=== PATIENT | female | born 1950 | race Caucasian/White ===

== ENCOUNTER 2017-12-31 17:48 | Emergency (ER) | payer OTHER ==
[2017-12-31] MEDS ORDERED: HYDROCODONE/APAP 10/325 TAB ONE (18:15)
--- NOTE | 2017-12-31 19:08 | EDPHYS ---
Physician Documentation [facility] Name: Juana Varner Age: 67 yrs Sex: Female : 1950 Arrival Date: 12/31/2017 Time: 17:49 Bed 27 Private MD: Out, [facility] ED Physician Owen Graves HPI: 12/31 18:05 This 67 yrs old Female presents to ER via Ambulatory with complaints of pm1 Laceration To Fingers. 18:05 Onset: The symptoms/episode began/occurred 1 hour(s) ago. pm1 18:05 The patient or guardian reports a laceration, clean. The complaints affect the dorsal pm1 aspect of middle phalanx of right middle finger and palmar aspect of distal phalanx of right thumb. Context: The problem was sustained at home, resulted from cutting vegetables with mandolin . Modifying factors: The symptoms are alleviated by pressure to area, the symptoms are aggravated by nothing. Associated signs and symptoms: Pertinent negatives: cyanosis distally, decreased sensation distally, numbness distally, tingling distally. Severity of symptoms: in the emergency department the symptoms are unchanged. The patient has not experienced similar symptoms in the past. Came to the ER due to difficulty with stopping the bleeding. Patient reports mandolin is new and she was cutting the vegetables with her hand instead of the food olivera. Historical: - Allergies: 17:51 No Known Allergies; sg - PSHx: 17:51 pace maker; Kidney stents; Lithotripsy; Hysterectomy; Tonsillectomy; sg - Immunization history:: Adult Immunizations not up to date. - Social history:: Smoking status: Patient/guardian denies using tobacco. - Ebola Screening: : Patient negative for fever greater than or equal to 101.5 degrees Fahrenheit, and additional compatible Ebola Virus Disease symptoms Patient denies exposure to infectious person Patient denies travel to an Ebola-affected area in the 21 days before illness onset No symptoms or risks identified at this time. ROS: 18:05 Constitutional: Negative for fever, chills, and weight loss, Cardiovascular: Negative pm1 for chest pain, palpitations, and edema, Respiratory: Negative for shortness of breath, cough, wheezing, and pleuritic chest pain, Abdomen/GI: Negative for abdominal pain, nausea, vomiting, diarrhea, and constipation, Back: Negative for injury and pain. 18:05 Neuro: Negative for headache, weakness, numbness, tingling, and seizure. 18:05 MS/extremity: Positive for laceration, of the palmar aspect of distal phalanx of right thumb and dorsal aspect of middle phalanx of right middle finger, Negative for decreased range of motion, deformity. 18:05 Skin: Positive for laceration(s), of the palmar aspect of distal phalanx of right thumb and dorsal aspect of middle phalanx of right middle finger. Exam: 18:05 Constitutional: This is a well developed, well nourished patient who is awake, alert, pm1 and in no acute distress. Head/Face: Normocephalic, atraumatic. Chest/axilla: Normal chest wall appearance and motion. Nontender with no deformity. No lesions are appreciated. Cardiovascular: Regular rate and rhythm with a normal S1 and S2. No gallops, murmurs, or rubs. Normal PMI, no JVD. No pulse deficits. Respiratory: Lungs have equal breath sounds bilaterally, clear to auscultation and percussion. No rales, rhonchi or wheezes noted. No increased work of breathing, no retractions or nasal flaring. Back: No spinal tenderness. No costovertebral tenderness. Full range of motion. 18:05 Skin: Appearance: normal except for affected area, injury, avulsion(s), a small of the dorsal aspect of middle phalanx of right middle finger, laceration(s), that can be described as clean, no foreign body, irregular, without bleeding, superficial at dorsal aspect of third right middle finger. Vital Signs: 17:58 BP 150 / 84; Pulse 66; Resp 17; Temp 97.9; Pulse Ox 100% on R/A; Weight 70.31 kg (R); sg Pain 10/10; MDM: 17:59 Patient medically screened. pm1 18:04 ED course: Patient refused tetanus shot. Just wants pain medication and to stop the pm1 bleeding. 19:07 Data reviewed: vital signs. Data interpreted: Pulse oximetry: on room air is 100 %. pm1 Interpretation: normal. Counseling: I had a detailed discussion with the patient and/or guardian regarding: the historical points, exam findings, and any diagnostic results supporting the discharge/admit diagnosis, the need for outpatient follow up, to return to the emergency department if symptoms worsen or persist or if there are any questions or concerns that arise at home. Administered Medications: 18:13 Drug: [place] 10 mg-325 mg 1 tabs Route: PO; mg2 Disposition: 01/01 06:48 Co-signature as Attending Physician, Owen Graves MD I agree with the assessment and christina plan of care. Disposition: 12/31/17 19:08 Discharged to Home. Impression: Laceration without foreign body of right thumb without damage to nail. - Condition is Stable. - Discharge Instructions: Laceration Care, Adult. - Prescriptions for Tylenol- Codeine #3 300-30 mg Oral Tablet - take 2 tablets by ORAL route every 6 hours As needed; 20 tablet. - Medication Reconciliation Form, Thank You Letter, Antibiotic Education, Prescription Opioid Use form. - Follow up: Emergency Department; When: As needed; Reason: Worsening of condition. Follow up: Private Physician; When: As needed; Reason: Wound Recheck, Recheck today's complaints, Continuance of care, Re-evaluation by your physician. - Problem is new. - Symptoms have improved. Signatures: Ilir Velazquez, RN RN Owen Knight MD MD cha Marinas, Patrick, PERCUSSION TUNER PERCUSSION TUNER pm1 Damian Villalobos RN RN mg2 Corrections: (The following items were deleted from the chart) 12/31 19:41 19:08 12/31/2017 19:08 Discharged to Home. Impression: Laceration without foreign body mg2 of right thumb without damage to nail. Condition is Stable. Forms are Medication Reconciliation Form, Thank You Letter, Antibiotic Education, Prescription Opioid Use. Follow up: Emergency Department; When: As needed; Reason: Worsening of condition. Follow up: Private Physician; When: As needed; Reason: Wound Recheck, Recheck today's complaints, Continuance of care, Re-evaluation by your physician. Problem is new. Symptoms have improved. pm1
--- NOTE | 2017-12-31 19:08 | ER ---
Nurse's Notes [facility] Name: Juana Varner Age: 67 yrs Sex: Female : 1950 Arrival Date: 12/31/2017 Time: 17:49 Bed 27 Private MD: Out, [facility] Diagnosis: Laceration without foreign body of right thumb without damage to nail Presentation: 12/31 17:57 Presenting complaint: Patient states: Using a Mandolin to cut produce, when my hand sg slipped and I sliced the inside of my right thumb. Transition of care: patient was not received from another setting of care. Onset of symptoms was December 31, 2017. Risk Assessment: Do you want to hurt yourself or someone else? Patient reports no desire to harm self or others. Initial Sepsis Screen: Does the patient meet any 2 criteria? No. Patient's initial sepsis screen is negative. Does the patient have a suspected source of infection? No. Patient's initial sepsis screen is negative. Care prior to arrival: None. 17:57 Method Of Arrival: Ambulatory sg 17:57 Acuity: YASH 4 sg Historical: - Allergies: 17:51 No Known Allergies; sg - PSHx: 17:51 pace maker; Kidney stents; Lithotripsy; Hysterectomy; Tonsillectomy; sg - Immunization history:: Adult Immunizations not up to date. - Social history:: Smoking status: Patient/guardian denies using tobacco. - Ebola Screening: : Patient negative for fever greater than or equal to 101.5 degrees Fahrenheit, and additional compatible Ebola Virus Disease symptoms Patient denies exposure to infectious person Patient denies travel to an Ebola-affected area in the 21 days before illness onset No symptoms or risks identified at this time. Screenin:40 Abuse screen: Denies threats or abuse. Denies injuries from another. Nutritional mg2 screening: No deficits noted. Tuberculosis screening: No symptoms or risk factors identified. Fall Risk None identified. Assessment: 18:37 General: Appears in no apparent distress. comfortable, Behavior is calm, cooperative. mg2 Pain: Complains of pain in right thumb Pain does not radiate. Pain currently is 4 out of 10 on a pain scale. Quality of pain is described as aching, Pain began suddenly, 1 hour ago. Is intermittent, Alleviated by medications. Neuro: Level of Consciousness is awake, alert, obeys commands, Oriented to person, place, time, situation. Cardiovascular: Capillary refill < 3 seconds Patient's skin is warm and dry. Respiratory: Airway is patent Respiratory effort is even, unlabored, Respiratory pattern is regular, symmetrical. GI: No signs and/or symptoms were reported involving the gastrointestinal system. : No signs and/or symptoms were reported regarding the genitourinary system. EENT: No signs and/or symptoms were reported regarding the EENT system. Derm: Skin is intact, Skin is pink, warm \T\ dry. normal. Musculoskeletal: Circulation, motion, and sensation intact. Injury Description: sliced off. Vital Signs: 17:58 BP 150 / 84; Pulse 66; Resp 17; Temp 97.9; Pulse Ox 100% on R/A; Weight 70.31 kg (R); sg Pain 10/10; ED Course: 17:49 Patient arrived in ED. sb2 17:50 Out, of [facility] is Private Physician. sb2 17:51 Arm band placed on. sg 17:58 Triage completed. sg 17:59 Albert Lay NP is PHCP. pm1 17:59 Owen Graves MD is Attending Physician. pm1 18:07 Damian Villalobos RN is Primary Nurse. mg2 18:40 Patient has correct armband on for positive identification. Bed in low position. mg2 19:08 No provider procedures requiring assistance completed. Patient did not have IV access mg2 during this emergency room visit. Dressings: non-adherent dressing x 1 right index finger 2x2 and coband. Administered Medications: 18:13 Drug: [place] 10 mg-325 mg 1 tabs Route: PO; mg2 Outcome: 19:08 Discharge ordered by . pm1 19:41 Discharged to home ambulatory, with family. mg2 19:41 Condition: good 19:41 Discharge instructions given to patient, family, Instructed on discharge instructions, follow up and referral plans. medication usage, Demonstrated understanding of instructions, follow-up care, medications, Prescriptions given X 1. 19:41 Patient left the ED. mg2 Signatures: Ilir Velazquez RN RN Albert Lay NP PERFECT BINDER FEEDER OFFBEARER pm1 Nena Smith sb2 Damian Villalobos RN RN mg2
== END 2017-12-31 19:41 | disposition home or self-care (01) ==
LOC: ER 17:48
DX: S61.011A Laceration without foreign body of right thumb without damage to nail, initial encounter (principal); X58.XXXA Exposure to other specified factors, initial encounter; Y93.9 Activity, unspecified; Y92.9 Unspecified place or not applicable; Z95.0 Presence of cardiac pacemaker
CPT/HCPCS: 99283